=== PATIENT | male | born 1930 | race Two or more races ===

== ENCOUNTER 2016-03-14 14:21 | Outpatient (CLI) | payer MEDICARE | END 2016-03-14 23:59 | disposition home health service (06) | LOC: WOU 14:21 | PROVIDERS: ATTEND Podiatrist Foot & Ankle Surgery | DX: I83.013 Varicose veins of right lower extremity with ulcer of ankle (principal); L97.311 Non-pressure chronic ulcer of right ankle limited to breakdown of skin; I83.891 Varicose veins of right lower extremity with other complications; I10 Essential (primary) hypertension; J44.9 Chronic obstructive pulmonary disease, unspecified | CPT/HCPCS: 11042; A6207; A6402 ==

== ENCOUNTER 2016-03-21 13:26 | Outpatient (CLI) | payer MEDICARE | END 2016-03-21 23:59 | disposition home health service (06) | LOC: WOU 13:26 | PROVIDERS: ATTEND Podiatrist Foot & Ankle Surgery | DX: I87.2 Venous insufficiency (chronic) (peripheral) (principal); I96 Gangrene, not elsewhere classified; L97.311 Non-pressure chronic ulcer of right ankle limited to breakdown of skin; R60.0 Localized edema; J44.9 Chronic obstructive pulmonary disease, unspecified; E66.3 Overweight; Z68.27 Body mass index [BMI] 27.0-27.9, adult; Z87.891 Personal history of nicotine dependence | CPT/HCPCS: 11042; A6402; A6452 ==

== ENCOUNTER 2016-03-28 14:00 | Outpatient (CLI) | payer MEDICARE | END 2016-03-28 23:59 | disposition home health service (06) | LOC: WOU 14:00 | PROVIDERS: ATTEND Podiatrist Foot & Ankle Surgery | DX: I83.213 Varicose veins of right lower extremity with both ulcer of ankle and inflammation (principal); L97.319 Non-pressure chronic ulcer of right ankle with unspecified severity; I83.891 Varicose veins of right lower extremity with other complications; I10 Essential (primary) hypertension; J44.9 Chronic obstructive pulmonary disease, unspecified; Z87.891 Personal history of nicotine dependence; Z79.51 Long term (current) use of inhaled steroids | CPT/HCPCS: 11042; A6402; A6452 ==

== ENCOUNTER 2016-04-04 14:30 | Outpatient (CLI) | payer MEDICARE | END 2016-04-04 23:59 | disposition home health service (06) | LOC: WOU 14:30 | PROVIDERS: ATTEND Podiatrist Foot & Ankle Surgery | DX: I83.013 Varicose veins of right lower extremity with ulcer of ankle (principal); L97.311 Non-pressure chronic ulcer of right ankle limited to breakdown of skin; Z87.891 Personal history of nicotine dependence; E66.9 Obesity, unspecified; Z68.27 Body mass index [BMI] 27.0-27.9, adult; J44.9 Chronic obstructive pulmonary disease, unspecified; I83.891 Varicose veins of right lower extremity with other complications | CPT/HCPCS: 11042; A6207; A6402 ==

== ENCOUNTER 2016-04-11 13:15 | Outpatient (CLI) | payer MEDICARE | END 2016-04-11 23:59 | disposition home health service (06) | LOC: WOU 13:15 | PROVIDERS: ATTEND Podiatrist Foot & Ankle Surgery | DX: I87.2 Venous insufficiency (chronic) (peripheral) (principal); L97.311 Non-pressure chronic ulcer of right ankle limited to breakdown of skin; R60.0 Localized edema; Z87.891 Personal history of nicotine dependence; J44.9 Chronic obstructive pulmonary disease, unspecified; Z79.899 Other long term (current) drug therapy; I10 Essential (primary) hypertension | CPT/HCPCS: 11042; A6207; A6402 ==

== ENCOUNTER 2016-04-18 13:22 | Outpatient (CLI) | payer MEDICARE | END 2016-04-18 23:59 | disposition home health service (06) | LOC: WOU 13:22 | PROVIDERS: ATTEND Podiatrist Foot & Ankle Surgery | DX: I87.311 Chronic venous hypertension (idiopathic) with ulcer of right lower extremity (principal); R60.0 Localized edema; J44.9 Chronic obstructive pulmonary disease, unspecified; E66.9 Obesity, unspecified; Z68.27 Body mass index [BMI] 27.0-27.9, adult; L97.311 Non-pressure chronic ulcer of right ankle limited to breakdown of skin; I10 Essential (primary) hypertension | CPT/HCPCS: 11042; A6207; A6402 ==

== ENCOUNTER 2016-04-24 13:26 | Outpatient (CLI) | payer MEDICARE | END 2016-04-24 23:59 | disposition home health service (06) | LOC: WOU 13:26 | PROVIDERS: ATTEND Podiatrist Foot & Ankle Surgery | DX: I87.2 Venous insufficiency (chronic) (peripheral) (principal); L97.311 Non-pressure chronic ulcer of right ankle limited to breakdown of skin; R60.0 Localized edema; J44.9 Chronic obstructive pulmonary disease, unspecified; Z87.891 Personal history of nicotine dependence; E66.9 Obesity, unspecified; Z68.27 Body mass index [BMI] 27.0-27.9, adult | CPT/HCPCS: 11042; A6207; A6402 ==

== ENCOUNTER 2016-05-02 13:37 | Outpatient (CLI) | payer MEDICARE | END 2016-05-02 23:59 | disposition home health service (06) | DX: I87.311 Chronic venous hypertension (idiopathic) with ulcer of right lower extremity (principal); L97.312 Non-pressure chronic ulcer of right ankle with fat layer exposed; Z87.891 Personal history of nicotine dependence; J44.9 Chronic obstructive pulmonary disease, unspecified; I10 Essential (primary) hypertension | CPT/HCPCS: 11042; A6207; A6402 ==

== ENCOUNTER 2016-05-09 13:33 | Outpatient (CLI) | payer MEDICARE | END 2016-05-09 23:59 | disposition home health service (06) | LOC: WOU 13:33 | PROVIDERS: ATTEND Podiatrist Foot & Ankle Surgery | DX: I87.331 Chronic venous hypertension (idiopathic) with ulcer and inflammation of right lower extremity (principal); L97.312 Non-pressure chronic ulcer of right ankle with fat layer exposed; Z87.891 Personal history of nicotine dependence; J44.9 Chronic obstructive pulmonary disease, unspecified; I10 Essential (primary) hypertension; E66.9 Obesity, unspecified; Z68.27 Body mass index [BMI] 27.0-27.9, adult | CPT/HCPCS: 11042; A6207; A6402 ==

== ENCOUNTER 2016-05-11 13:44 | Outpatient (CLI) | payer MEDICARE ==
[2016-05-11 14:37] LABS: BASOPHILS % (AUTO) 0.5 % (0.0-2.0); DIFF TOTAL % 100 %; EOSINOPHILS # (AUTO) 0.3 /CMM (0.0-0.7); EOSINOPHILS % (AUTO) 4.4 % (0.0-6.0); HEMATOCRIT 45 % (39-51); HEMOGLOBIN 14.9 g/dL (13.5-17.5); LYMPHOCYTES # (AUTO) 1.5 /CMM (0.8-4.8); LYMPHOCYTES % (AUTO) 26.5 % (20.0-44.0); MEAN CORPUSCULAR HEMOGLOBIN 30 PG (26.0-33.0); MEAN CORPUSCULAR HGB CONC 33 g/dl (31.0-36.0); MEAN CORPUSCULAR VOLUME 91 fL (80-96); MONOCYTES # (AUTO) 0.6 /CMM (0.1-1.30); MONOCYTES % (AUTO) 10.2 % (2.0-12.0); NEUTROPHILS # (AUTO) 3.4 /CMM (1.8-8.9); NEUTROPHILS % (AUTO) 58.4 % (43.0-81.0); PLATELET COUNT (AUTO) 143 /CMM (150-450); RED BLOOD CELL COUNT(AUTO) 4.92 MIL/uL (4.5-6.0); WHITE BLOOD COUNT (AUTO) 5.8 K/uL (4.3-11.0)
[2016-05-11 14:47] LABS: CALCIUM, SERUM 8.9 mg/dL (8.5-10.1); POTASSIUM 3.8 mmol/L (3.5-5.1)
[2016-05-11 15:02] LABS: INR 1.02 (0.87-1.13)
== END 2016-05-11 23:59 | disposition home or self-care (01) ==
LOC: LAB 13:44
PROVIDERS: ATTEND Podiatrist Foot & Ankle Surgery
DX: I87.8 Other specified disorders of veins (principal); I70.0 Atherosclerosis of aorta; J98.11 Atelectasis
CPT/HCPCS: 36415; 71010-TC; 80048-TC; 85025-TC; 85730-TC

== ENCOUNTER 2016-05-18 05:36 | Inpatient (IN) | payer MEDICARE ==
[2016-05-18] VITALS (7 sets, daily range): BP systolic 124–144; BP diastolic 71–85
[~2016-05-18] VITALS: Ht 193 cm; Wt 90.7 kg
[2016-05-18] MEDS ORDERED: CEFAZOLIN SODIUM/DEXTROSE,ISO 100 ML IV ONE (06:15)
[2016-05-18] MEDS ORDERED: AMLO5TAB2 PO (06:24)
[2016-05-18] MEDS ORDERED: ALBU18HF2 INH (06:24)
[2016-05-18] MEDS ORDERED: TIOT18CA3 IH (10:20)
[2016-05-18 10:44] LABS: PHOSPHORUS 3.5 mg/dL (2.5-4.9)
[2016-05-18] MEDS ORDERED: MORPHINE SULFATE INJ 2 MG/ML DISP.SYRIN IV PRN (11:00)
[2016-05-18] MEDS ORDERED: ONDANSETRON HCL/PF 4 MG/2 ML VIAL IV PRN (11:00)
[2016-05-18] MEDS ORDERED: HYDROCODONE/APAP 5/325MG 1 EACH TABLET PO PRN ×2 (11:00)
--- NOTE | 2016-05-18 11:00 | NUR ---
ms rn received on bed, awake,alert,oriented x4,not in any form of distress, respirations even and unlabored,no sob noted, lungs are clear,abdomen soft,positive bowel sounds, denies pain at this time. s/p i and d of right foot w/ donor site at right upper leg w/ wound vac connected to wound and donor site.all needs attended.
--- NOTE | 2016-05-18 12:00 | NUR ---
MS NR REPOSITIONED FOR COMFORT.
--- NOTE | 2016-05-18 13:33 | NUR ---
COMMANDER POLICE RESERVES VAC THERAPY ORDERS CLARIFIED WITH SURGEON DR VENCES AND DISCUSSED WITH SOUND ENGINEER. PORTABLE HOME VAC IS IN THE ROOM ALONG WITH ALL HOME VAC SUPPLIES. PATIENT'S DAUGHTER WAS AT THE BEDSIDE AND SHE VERBALIZED GOOD UNDERSTANDING REGARDING THE VAC SUPPLIES.
--- NOTE | 2016-05-18 14:00 | NUR ---
MS RN REPOSITIONED FOR COMFORT.
[2016-05-18] MEDS: IPRATROPIUM NEB FS 0.5 MG/2.5 ML AMPUL.NEB NEB SCH ×2 (14:53→19:10)
--- NOTE | 2016-05-18 15:00 | NUR ---
MS MACHINE BOSS AT BEDSIDE,NO DISTRESS NOTED,DENIES PAIN AT THIS TIME.
--- NOTE | 2016-05-18 16:00 | NUR ---
MS RN REPOSITIONED FOR COMFORT.
[2016-05-18] MEDS ORDERED: IV SET PRIMARY PUMP SET 1 EA INFUS.SET MC ONE (16:25)
[2016-05-18] MEDS: ANCEF 1 GM/50 ML D5W IV SCH ×4 (16:31→21:36)
--- NOTE | 2016-05-18 18:00 | NUR ---
MS RN REPOSITIONED FOR COMFORT.
--- NOTE | 2016-05-18 19:00 | NUR ---
MS RN ON BED,NO DISTRESS NOTED,ALL NEEDS ATTENDED.
[2016-05-18] MEDS: ALBUTEROL FS 2.5 MG/3 ML VIAL.NEB NEB PRN (19:10)
--- NOTE | 2016-05-18 19:43 | NUR ---
CLINIC LEAD OPENING NOTES RECEIVED PATIENT IN BED AWAKE AND EASILY AWAKEN. IN STABLE CONDITION, NO S/S OF DISTRESS, IV SITE INTACT WITH S/S OF INFILTRATION. NO S/S OF DISTRESS NO SOB, NO CHEST PAIN. NO COMPLAINS OF PAIN, SAFE FREE ENVIRONMENT PROVIDED FREE OF CLUTTERS, WILL CONTINUE TO MONITOR, ON LOW BED TO ENSURE SAFETY, CALL LIGHT WITHIN REACH..
[2016-05-18 21:53] LABS: THYROID STIMULATING HORMONE 1.001 uIU/mL (0.358-3.74)
[2016-05-18] MEDS ORDERED: ZOLPIDEM TARTRATE 5 MG TABLET PO PRN (22:00)
--- NOTE | 2016-05-18 22:00 | NUR ---
TRANSPORTATION SECURITY SCREENERLEASE EXAMINER ] PATIENT REFUSED TO ASSESS WOUND RIGHT ANKLE PER PATIENT HE DOESNT WANT THE DRESSING TO BE TOUCH, I EXPLAINED AND RE EDUCATE THAT I NEED TO ASSESS THE WOUND AND MEASURE AND TAKE A PICTURE OF IT, PATIENT STILL REFUSED. HEALTH EDUCATION WAS PROVIDED. DRESSING INTACT NOT SOILED. NO S/S OF INFECTION. ON WOUND VAC. RISKS AND BENEFITS EXPLAINED OFFERED 3 TIMES MD MADE AWARE
[2016-05-19] VITALS: BP 152/89
[2016-05-19] MEDS: IPRATROPIUM NEB FS 0.5 MG/2.5 ML AMPUL.NEB NEB SCH ×4 (01:05→19:53)
[2016-05-19] MEDS: ALBUTEROL FS 2.5 MG/3 ML VIAL.NEB NEB PRN (01:06)
[2016-05-19 04:00] VITALS: BP 138/83
[2016-05-19] MEDS: ANCEF 1 GM/50 ML D5W IV SCH ×2 (04:32)
--- NOTE | 2016-05-19 06:31 | NUR ---
FILLING HAULER WEAVING CLOSING NOTES PATIENT COMFORTABLY IN BED ASLEEP AND EASILY AWAKEN, ON ATB WITH NO A/R NOTED. ALERT AND VERBALLY X 4 RESPONSIVE DENIES PAIN OR DISTRESS, RESPONDS APPROPRIATELY TO VERBAL STIMULI, RESPIRATIONS EVEN UNLABORED BREATH SOUNDS.. APICAL PULSE REGULAR; NO S/S OF BLEEDING NOTED. DRESSING INTACT IN THE RIGHT LOWER LEG ULCER NOT SOILED NO S/S OF INFECTION NOTED. GOOD SKIN CARE PROVIDED. PATIENT IN STABLE CONDITION WITH NO SOB NO S/S OF DISTRESS NO NAUSEA AND VOMITING NO HEADACHE NO PAIN, NO COMPLAIN OF CHEST PAIN SAFETY ENVIRONMENT PROVIDED. FREE OF CLUTTERS, SAFE HAZARD FREE ENVIRONMENT. NEEDS ATTENDED AND ANTICIPATED, NURSING CARE RENDERED, KEPT CLEAN AND DRY AND COMFORTABLE. ALL DUE MEDS WAS GIVEN. STRICTLY REPOSITIONED Q2H FOR COMFORT AND SKIN MGT. CALL LIGHT IN REACH, BED LOWERED AND LOCKED, SR X2 FOR SAFETY AND WILL ENDORSE CONTINUE PLAN OF CARE. PATIENT STILL REFUSED FOR ME TO ASSESS THE WOUND EXPLAINED THAT I NEED TO ASSESS AND TAKE A PICTURE PER PATIENT HE DOESNT WANT THE DRESSING TO BE TOUCH AT THIS MOMENT. RISKS AND BENEFITS EXPLAINED OFFERED 3X. PATIENT ON WOUND VAC. TOLERATING WELL
[2016-05-19 07:00] VITALS: BP 131/75
[2016-05-19 07:37] LABS: ALBUMIN 2.9 g/dL (3.4-5.0); BILIRUBIN,TOTAL 0.7 mg/dL (0.2-1.0); CALCIUM, SERUM 8.6 mg/dL (8.5-10.1); CREATININE 1.1 mg/dL (0.6-1.3); PHOSPHORUS 3.7 mg/dL (2.5-4.9); POTASSIUM 3.7 mmol/L (3.5-5.1); TOTAL PROTEIN, SERUM 6.3 g/dL (6.4-8.2)
[2016-05-19 07:41] LABS: BASOPHILS % (AUTO) 0.4 % (0.0-2.0); EOSINOPHILS # (AUTO) 0.1 /CMM (0.0-0.7); EOSINOPHILS % (AUTO) 2.4 % (0.0-6.0); HEMATOCRIT 44 % (39-51); HEMOGLOBIN 14.4 g/dL (13.5-17.5); LYMPHOCYTES # (AUTO) 1.1 /CMM (0.8-4.8); LYMPHOCYTES % (AUTO) 20.3 % (20.0-44.0); MEAN CORPUSCULAR HEMOGLOBIN 31 PG (26.0-33.0); MEAN CORPUSCULAR HGB CONC 33 g/dl (31.0-36.0); MEAN CORPUSCULAR VOLUME 93 fL (80-96); MONOCYTES # (AUTO) 0.6 /CMM (0.1-1.30); MONOCYTES % (AUTO) 10.5 % (2.0-12.0); NEUTROPHILS # (AUTO) 3.8 /CMM (1.8-8.9); NEUTROPHILS % (AUTO) 66.4 % (43.0-81.0); PLATELET COUNT (AUTO) 161 /CMM (150-450); RDW COEFFICIENT OF VARIATION 15.4 (11.5-15.0); RED BLOOD CELL COUNT(AUTO) 4.68 MIL/uL (4.5-6.0); WHITE BLOOD COUNT (AUTO) 5.7 K/uL (4.3-11.0)
--- NOTE | 2016-05-19 08:15 | NUR ---
AM RN NOTE Received patient awake, A/O X4 verbally responsive able to make needs known. Skin warm and dry to touch. On tele monitor and wound vac on. Patient seen and assessed by Dr. Majano with new order for CTA Abdominal aorta, order noted and carried out. Consent for procedure obtained from patient. IV site on RAC #20 started per lighting technician recommendation. Patient denies any pain at this time. On NPO status. Will continue to monitor.
[2016-05-19] MEDS: ASCORBIC ACID 500 MG TABLET PO SCH (09:00)
[2016-05-19] MEDS ORDERED: IV NS 0.9% 250 ML IV ONE (09:21)
[2016-05-19] MEDS ORDERED: IOHEXOL-350 100 ML VIAL IV ONE (09:21)
[2016-05-19] MEDS ORDERED: CT SWABBABLE VALVE TRANS SET 1 EA INFUS.SET MC ONE (09:21)
--- NOTE | 2016-05-19 09:30 | NUR ---
RN NOTE Patient awake, left for CTA procedure at this time. Received call from Dali (Daughter) made aware about procedure.
--- NOTE | 2016-05-19 10:03 | NUR ---
RN NOTE Patient came back from procedure, A/O X4.
--- NOTE | 2016-05-19 12:00 | NUR ---
RN NOTE Patient awake lying in his bed. Daughter (Dali) at bedside, made aware about discharge orders. Wound vac changed to home wound vac @125mm/hg settings. Teachings on wound vac given to daughter by 2RN's and daughter shows understanding. [facility] [place] provided to daughter.Daughter has questions regarding home health services and requesting for W/C. Called Jaymie (manager environmental health and safety) and made aware to talk to daughter. Charge nurse made aware.
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
--- NOTE | 2016-05-19 15:00 | NUR ---
RN NOTE Patient seen and assessed by Physical therapist (Jackelyn) and needs lots of assist at home. Lita KIDD) made aware by KRISTY.
[2016-05-19 16:00] VITALS: BP 124/68
--- NOTE | 2016-05-19 17:05 | NUR ---
RN NOTE Patient seen by Dr. Rubio with new orders. Dr. Martinez made aware about consult order. Notified Dr. Joy about cancelled discharge.
[2016-05-19] MEDS ORDERED: IV SET PRIMARY PUMP SET 1 EA INFUS.SET MC ONE (17:30)
[2016-05-19] MEDS: CIPROFLOXACIN IV RTU 400 MG in PREMIX 1 EA IV SCH (17:50)
--- NOTE | 2016-05-19 18:19 | NUR ---
RN NOTE Patient awake, ate dinner. Denies any pain or discomfort at this time. Family at bedside. Will continue to monitor. Wound vac attached to site as ordered. Call light with in reach. Will endorse to next shift for ELO.
[2016-05-19 20:46] VITALS: BP 133/63
[2016-05-20] MEDS: IPRATROPIUM NEB FS 0.5 MG/2.5 ML AMPUL.NEB NEB SCH ×4 (01:06→20:15)
[2016-05-20 01:32] VITALS: BP 124/82
[2016-05-20] MEDS: CIPROFLOXACIN IV RTU 400 MG in PREMIX 1 EA IV SCH ×2 (04:02→16:55)
--- NOTE | 2016-05-20 06:36 | NUR ---
MS RN CLOSING NOTES PATIENT COMFORTABLY IN BED ASLEEP AND EASILY AWAKEN, BREATHING TREATMENT TOLERATED WELL. WOUND VAC FUNCTIONING WELL. ON ATB WITH NO A/R NOTED. ALERT AND VERBALLY X 4 RESPONSIVE DENIES PAIN OR DISTRESS, RESPONDS APPROPRIATELY TO VERBAL STIMULI, RESPIRATIONS EVEN UNLABORED BREATH SOUNDS. APICAL PULSE REGULAR; GOOD SKIN CARE PROVIDED. PATIENT IN STABLE CONDITION WITH NO SOB NO S/S OF DISTRESS NO NAUSEA AND VOMITING NO HEADACHE NO PAIN, NO COMPLAIN OF CHEST PAIN SAFETY ENVIRONMENT PROVIDED. FREE OF CLUTTERS, SAFE HAZARD FREE ENVIRONMENT. NEEDS ATTENDED AND ANTICIPATED, NURSING CARE RENDERED, KEPT CLEAN AND DRY AND COMFORTABLE. ALL DUE MEDS WAS GIVEN. ASSISTED REPOSITIONED Q2H FOR COMFORT AND SKIN MGT. CALL LIGHT IN REACH, BED LOWERED AND LOCKED, SR X2 FOR SAFETY AND WILL ENDORSE CONTINUE PLAN OF CARE
--- NOTE | 2016-05-20 07:15 | NUR ---
MS RN INITIAL NOTES REPORT RECEIVED AT THE BEDSIDE. PATIENT IS SLEEPING. NO SOB OR DISTRESS NOTED AT THIS TIME. PATIENT DOES NOT APPEAR TO BE IN PAIN, NO FACIAL GRIMACE NOTED. WOUND VAC ATTACHED AND DRAINING. BED IN A LOW POSITION, CALL LIGHT WITHIN PATIENT REACH. WILL CONTINUE TO MONITOR.
[2016-05-20 08:00] VITALS: BP 146/84
[2016-05-20] MEDS: ASCORBIC ACID 500 MG TABLET PO SCH (08:15)
[2016-05-20] MEDS: ALBUTEROL FS 2.5 MG/3 ML VIAL.NEB NEB PRN ×2 (09:39→14:04)
--- NOTE | 2016-05-20 13:21 | NUR ---
RT Patient is on oxygen 2L, NC. Wheezes breath sounds. Patient has dry non productive cough. Tx given as ordered. No adverse reactions. Ambu bag at the bed side.
[2016-05-20 16:00] VITALS: BP 139/82
--- NOTE | 2016-05-20 18:54 | NUR ---
MS RN CLOSING NOTES NO SIGNIFICANT CHANGES IN PATIENT CONDITION THROUGHOUT THE SHIFT. NO SOB OR DISTRESS NOTED AT THIS TIME. PATIENT DENIES PAIN. BED IN A LOW POSITION, CALL LIGHT WITHIN PATIENT REACH. WOUND VAC ATTACHED AND DRAINING. WILL ENDORSE FOR ELO.
--- NOTE | 2016-05-20 19:50 | NUR ---
MS RN INITIAL NOTES: RECEIVED REPORT FROM OSCAR HIGGINS. PT ON BED, AWAKE, A/O X4, ON 2L VIA NC, LUNGS CLEAR UPON AUSCULTATION OF THE LUNG FIELD, PT DENIES ANY SOB OR CHEST PAIN OR LEG PAIN. S/P RLE PREPARATION SKIN GRAFT AND WOUND VAC PLACEMENT, BY DR VENCES ON 05/18/16, WOUND VAC THERAPY AT CONTINUOUS 125 MMHG. BLOODY DRAINAGE NOTED, SCANTY IN AMOUNT. PT'S RLE COVERED WITH SURGICAL DRESSING, C/D/I, NO ACTIVE BLEEDING NOTED, NO S/S OF INFECTION OR REDNESS NOTED, PT ABLE TO MOVE AND WIGGLE TOES, DENIES ANY NUMBNESS TINGLING SENSATION ON LEG. BLE OFFLOADED. SCD IN USE. AT BED SIDE. SAFETY PRECAUTIONS FOR FALL INITIATED CALL LIGHT IN REACH WILL CONTINUE TO MONITOR
[2016-05-20 20:00] VITALS: BP 138/80
--- NOTE | 2016-05-20 20:00 | NUR ---
MS RN NOTES: PT REFUSED SCD EDUCATE PT REGARDING RISK AND BENEFITS, PT A/O X4
--- NOTE | 2016-05-20 20:47 | NUR ---
MS RN NOTES: IV ACCESS PATENT AND FLUSHING WELL, NO S/S OF INFILTRATION OR REDNESS NOTED, ON HL
[2016-05-20 20:58] VITALS: BP 138/80
--- NOTE | 2016-05-20 21:05 | NUR ---
RN NOTES: PT HAS HEARING AID ON RIGHT EAR
[2016-05-21] MEDS: IPRATROPIUM NEB FS 0.5 MG/2.5 ML AMPUL.NEB NEB SCH ×4 (00:38→19:31)
[2016-05-21] MEDS: CIPROFLOXACIN IV RTU 400 MG in PREMIX 1 EA IV SCH (04:08)
--- NOTE | 2016-05-21 06:59 | NUR ---
MS RN CLOSING NOTES: PT ON BED, AWAKE, DENIES ANY PAIN OR DISCOMFORT THROUGHOUT THE SHIFT. PT'S DRESSING ON RIGHT LEG REMAINS C/D/I, PT DENIES ANY NUMBNESS TINGLING NUMBNESS SENSATION ON RIGHT LEG, ABLE TO MOVE AND WIGGLE TOES. WOUND VAC IN PLACED AT 125MMHG, WITH SCANTY AMOUNT OF BLOODY DRAINAGE. PT REMAINS NON WEIGHTBEARING ON RLE. REMAINS ON 2L VIA NC, DENIES ANY SOB AT THIS TIME. RESPIRATION EVEN AND UNLABORED. RIGHT AC IV ACCESS REMAINS PATENT AND FLUSHING WELL, ON HL. VS REMAINS STABLE, NEEDS ATTENDED. SAFETY PRECAUTIONS FOR FALL REMAINS ENGAGED, CALL LIGHT IN REACH, WILL ENDORSE TO DAY RN FOR ELO.
[2016-05-21 07:39] LABS: BASOPHILS % (AUTO) 0.6 % (0.0-2.0); EOSINOPHILS # (AUTO) 0.3 /CMM (0.0-0.7); EOSINOPHILS % (AUTO) 5.1 % (0.0-6.0); HEMATOCRIT 46 % (39-51); LYMPHOCYTES # (AUTO) 1.4 /CMM (0.8-4.8); LYMPHOCYTES % (AUTO) 21.5 % (20.0-44.0); MEAN CORPUSCULAR HEMOGLOBIN 30 PG (26.0-33.0); MEAN CORPUSCULAR HGB CONC 33 g/dl (31.0-36.0); MEAN CORPUSCULAR VOLUME 93 fL (80-96); MONOCYTES # (AUTO) 0.9 /CMM (0.1-1.30); MONOCYTES % (AUTO) 13.5 % (2.0-12.0); NEUTROPHILS # (AUTO) 3.7 /CMM (1.8-8.9); NEUTROPHILS % (AUTO) 59.3 % (43.0-81.0); PLATELET COUNT (AUTO) 167 /CMM (150-450); RDW COEFFICIENT OF VARIATION 15.4 (11.5-15.0); RED BLOOD CELL COUNT(AUTO) 4.94 MIL/uL (4.5-6.0); WHITE BLOOD COUNT (AUTO) 6.3 K/uL (4.3-11.0)
[2016-05-21 07:58] LABS: CALCIUM, SERUM 8.5 mg/dL (8.5-10.1); CREATININE 1.2 mg/dL (0.6-1.3); POTASSIUM 3.7 mmol/L (3.5-5.1)
[2016-05-21 08:00] VITALS: BP 133/75
--- NOTE | 2016-05-21 08:10 | NUR ---
MS RN RECEIVED ON BED, AWAKE,ALERT,ORIENTED X4,NOT IN ANY FORM OF DISTRESS, RESPIRATIONS EVEN AND UNLABORED,NO SOB NOTED, LUNGS ARE CLEAR,ABDOMEN SOFT,POSITIVE BOWEL SOUNDS,DENIES PAIN AT THIS TIME,ALL NEEDS ATTENDED.
--- NOTE | 2016-05-21 09:00 | NUR ---
MS HIGGINS BREAKFAST SERVED,DUE MEDS GIVEN,TOLERATED WELL. WILL MONITOR PATIENT'S CONDITION.
[2016-05-21] MEDS: ASCORBIC ACID 500 MG TABLET PO SCH (09:33)
--- NOTE | 2016-05-21 10:00 | NUR ---
MS RN CHECKED RIGHT LEG WOUND VAC, FUNCTIONING WELL AT THIS TIME W/ SANGUENOUS DRAINAGE.
--- NOTE | 2016-05-21 14:00 | NUR ---
MS RN PATIENT SEATING ON A CHAIR, D/C PLAN IN AM PER SENIOR ACCOUNTING MANAGER.
[2016-05-21 16:00] VITALS: BP 148/87
[2016-05-21] MEDS: ALBUTEROL FS 2.5 MG/3 ML VIAL.NEB NEB PRN (19:31)
--- NOTE | 2016-05-21 19:31 | NUR ---
MS RN ON BED,NO CHANGE OF CONDITION.
--- NOTE | 2016-05-21 19:55 | NUR ---
RN OPENING NOTES RECEIVED REPORT FROM DAYSHIFT RN. FOUND Pt AWAKE, RESTING IN BED. DTR VISITING AT BEDSIDE. A/OX4, VERBAL, ABLE TO MAKE NEEDS KNOWN. NO S/S OF ACUTE DISTRESS OR SOB NOTED. NO C/O SEVERE PAIN AT THIS TIME. IV ACCESS ON RAC #20G, SL & L HAND #20G, SL. SAFETY MEASURES IN PLACE. BED LOW, LOCKED, HOB ELEVATED, SIDE RAILS UP, CALL LIGHT WITHIN REACH. WILL CONTINUE TO MONITOR Pt THROUGHOUT THE NIGHT.
[2016-05-21 20:00] VITALS: BP 150/76
[2016-05-21 22:00] VITALS: BP 150/76
[2016-05-22] MEDS: IPRATROPIUM NEB FS 0.5 MG/2.5 ML AMPUL.NEB NEB SCH ×3 (01:17→14:18)
[2016-05-22] MEDS: ALBUTEROL FS 2.5 MG/3 ML VIAL.NEB NEB PRN ×3 (01:17→14:18)
--- NOTE | 2016-05-22 06:33 | NUR ---
RN CLOSING NOTES NO SIGNIFICANT CHANGES DURING THE SHIFT. NO S/S OF ACUTE DISTRESS OR SOB NOTED. ALL NEEDS MET AND ATTENDED TO. SAFETY MEASURES IN PLACE. WOUND VAC RUNNING @125. D/C PLAN IN THE AM TODAY. WILL ENDORSE TO DAYSHIFT RN FOR Pt's ELO.
[2016-05-22 08:00] VITALS: BP 131/72
--- NOTE | 2016-05-22 08:05 | NUR ---
MS/RN AM NOTES RECEIVED PATIENT IN BED, AWAKE, ALERT, IN STABLE CONDITION, WITHOUT SOB, DENIES PAIN, IV LINE LEFT WRIST PATENT, NO REDNESS. WOUND VAC IN PLACE RIGHT UPPER THIGH, WITH 500 ML DRAINAGE. KEPT COMFORTABLE, WITH CALL LIGHT WITHIN EASY REACH. WILL CONTINUE TO MONITOR ACCORDINGLY
[2016-05-22] MEDS: ASCORBIC ACID 500 MG TABLET PO SCH (08:30)
[2016-05-22] MEDS ORDERED: ERGOCALCIFEROL (VITAMIN D 2) 50,000 UNIT CAPSULE PO SCH (11:00)
[2016-05-22 16:00] VITALS: BP 130/71
--- NOTE | 2016-05-22 18:40 | NUR ---
DISCHARGED PT HOME WITH STABLE V/S VIA PRIVATE TRANSPORTATION ([facility]) WITH HIS WOUND VAC ATTACHED AND ALL HIS BELONGINGS AND SUPPLIES.CALLED [facility] AND SPOKE TO BANDAR WHO STATED THAT PT WILL BE SEEN BY HOME HEALTH RN PARAM.
== END 2016-05-22 18:40 | disposition home health service (06) | DRG 264 ==
LOC: DS 05:36 → WOUND3 09:27
PROC: 0HRMX74 Replacement of Right Foot Skin with Autologous Tissue Substitute, Partial Thickness, External Approach (ICD-10-PCS; principal; 2016-05-18 07:00)
DX: I87.2 Venous insufficiency (chronic) (peripheral) (principal); L03.115 Cellulitis of right lower limb; J98.11 Atelectasis; N13.30 Unspecified hydronephrosis; L97.319 Non-pressure chronic ulcer of right ankle with unspecified severity; K80.20 Calculus of gallbladder without cholecystitis without obstruction; J44.9 Chronic obstructive pulmonary disease, unspecified; I73.9 Peripheral vascular disease, unspecified; I10 Essential (primary) hypertension; H91.91 Unspecified hearing loss, right ear; Z87.891 Personal history of nicotine dependence; E55.9 Vitamin D deficiency, unspecified; B96.5 Pseudomonas (aeruginosa) (mallei) (pseudomallei) as the cause of diseases classified elsewhere; B96.89 Other specified bacterial agents as the cause of diseases classified elsewhere
CPT/HCPCS: 36415; 76700-TC; 80048-TC; 80053-TC; 82306; 83735-TC; 84100-TC; 84439-TC; 84443-TC; 85025-TC; 87070-TC; 87075-TC; 87186-TC; 88305-TC; 88312-TC; 93307-TC; 94799-TC; 97001-TC; 97116-TC; 97530-TC; A4216; J0690; J0744; J1100; J2001; J2704; J7050; J7060; Q9967; Z7610

== ENCOUNTER 2016-05-25 15:47 | Outpatient (CLI) | payer MEDICARE ==
[~2016-05-25 15:47] MED LIST: ALBU18HF2 INH; AMLO5TAB2 PO; TIOT18CA3 IH
== END 2016-05-25 23:59 | disposition home health service (06) ==
LOC: WOU 15:47
PROVIDERS: ATTEND Podiatrist Foot & Ankle Surgery
DX: I87.311 Chronic venous hypertension (idiopathic) with ulcer of right lower extremity (principal); L97.312 Non-pressure chronic ulcer of right ankle with fat layer exposed; T86.828 Other complications of skin graft (allograft) (autograft); Z87.891 Personal history of nicotine dependence; J44.9 Chronic obstructive pulmonary disease, unspecified; I10 Essential (primary) hypertension; L03.115 Cellulitis of right lower limb; Z99.3 Dependence on wheelchair
CPT/HCPCS: 29582; A6207; A6402

== ENCOUNTER 2016-05-29 08:18 | Outpatient (CLI) | payer MEDICARE | END 2016-05-29 23:59 | disposition home health service (06) | LOC: WOU 08:18 | PROVIDERS: ATTEND Podiatrist Foot & Ankle Surgery | DX: T86.822 Skin graft (allograft) (autograft) infection (principal); L03.115 Cellulitis of right lower limb; B96.89 Other specified bacterial agents as the cause of diseases classified elsewhere; I87.311 Chronic venous hypertension (idiopathic) with ulcer of right lower extremity; L97.319 Non-pressure chronic ulcer of right ankle with unspecified severity; J44.9 Chronic obstructive pulmonary disease, unspecified | CPT/HCPCS: A6207; A6402 ==

== ENCOUNTER 2016-06-01 08:28 | Outpatient (CLI) | payer MEDICARE | END 2016-06-01 23:59 | disposition home health service (06) | LOC: WOU 08:28 | PROVIDERS: ATTEND Podiatrist Foot & Ankle Surgery | DX: Z48.817 Encounter for surgical aftercare following surgery on the skin and subcutaneous tissue (principal); I87.311 Chronic venous hypertension (idiopathic) with ulcer of right lower extremity; L97.319 Non-pressure chronic ulcer of right ankle with unspecified severity; J44.9 Chronic obstructive pulmonary disease, unspecified | CPT/HCPCS: 29582; A6207; A6402; G0463 ==

== ENCOUNTER 2016-06-05 08:32 | Outpatient (CLI) | payer MEDICARE | END 2016-06-05 23:59 | disposition home health service (06) | LOC: WOU 08:32 | PROVIDERS: ATTEND Podiatrist Foot & Ankle Surgery | DX: I87.311 Chronic venous hypertension (idiopathic) with ulcer of right lower extremity (principal); L97.311 Non-pressure chronic ulcer of right ankle limited to breakdown of skin; L03.115 Cellulitis of right lower limb; B96.5 Pseudomonas (aeruginosa) (mallei) (pseudomallei) as the cause of diseases classified elsewhere; B96.89 Other specified bacterial agents as the cause of diseases classified elsewhere; L30.9 Dermatitis, unspecified; T86.821 Skin graft (allograft) (autograft) failure | CPT/HCPCS: A6207; A6402 ==

== ENCOUNTER 2016-06-08 08:25 | Outpatient (CLI) | payer MEDICARE | END 2016-06-08 23:59 | disposition home health service (06) | LOC: WOU 08:25 | PROVIDERS: ATTEND Podiatrist Foot & Ankle Surgery | DX: I87.331 Chronic venous hypertension (idiopathic) with ulcer and inflammation of right lower extremity (principal); L97.311 Non-pressure chronic ulcer of right ankle limited to breakdown of skin; L30.9 Dermatitis, unspecified; L03.115 Cellulitis of right lower limb; B96.5 Pseudomonas (aeruginosa) (mallei) (pseudomallei) as the cause of diseases classified elsewhere; T86.821 Skin graft (allograft) (autograft) failure | CPT/HCPCS: A6207; A6402 ==

== ENCOUNTER 2016-06-11 08:28 | Emergency (ER) | payer MEDICARE ==
[~2016-06-11] VITALS: Ht 182.9 cm; Wt 90.7 kg
[2016-06-11 08:40] VITALS: BP 145/68
== END 2016-06-11 09:30 | disposition home or self-care (01) ==
LOC: ER 08:29
DX: T82.898A Other specified complication of vascular prosthetic devices, implants and grafts, initial encounter (principal); I10 Essential (primary) hypertension
CPT/HCPCS: 73080; 99284; A4606; Z7610

== ENCOUNTER 2016-06-12 08:20 | Outpatient (CLI) | payer MEDICARE | END 2016-06-12 23:59 | disposition home or self-care (01) | LOC: WOU 08:20 | PROVIDERS: ATTEND Podiatrist Foot & Ankle Surgery | DX: I87.311 Chronic venous hypertension (idiopathic) with ulcer of right lower extremity (principal); L97.319 Non-pressure chronic ulcer of right ankle with unspecified severity; T86.821 Skin graft (allograft) (autograft) failure; L30.9 Dermatitis, unspecified | CPT/HCPCS: A6207; A6402; G0463 ==

== ENCOUNTER 2016-06-19 08:21 | Outpatient (CLI) | payer MEDICARE | END 2016-06-19 23:59 | disposition home health service (06) | LOC: WOU 08:21 | PROVIDERS: ATTEND Podiatrist Foot & Ankle Surgery | DX: I83.213 Varicose veins of right lower extremity with both ulcer of ankle and inflammation (principal); L97.311 Non-pressure chronic ulcer of right ankle limited to breakdown of skin; T86.821 Skin graft (allograft) (autograft) failure | CPT/HCPCS: 11042; A6207; A6402 ==

== ENCOUNTER 2016-06-27 08:22 | Outpatient (CLI) | payer MEDICARE | END 2016-06-27 23:59 | disposition home health service (06) | LOC: WOU 08:22 | PROVIDERS: ATTEND Specialist | DX: I83.013 Varicose veins of right lower extremity with ulcer of ankle (principal); L97.311 Non-pressure chronic ulcer of right ankle limited to breakdown of skin; L03.115 Cellulitis of right lower limb; T86.828 Other complications of skin graft (allograft) (autograft) | CPT/HCPCS: A6207; A6253; A6402 ==

== ENCOUNTER 2016-07-03 08:20 | Outpatient (CLI) | payer MEDICARE | END 2016-07-03 23:59 | disposition home health service (06) | LOC: WOU 08:20 | PROVIDERS: ATTEND Podiatrist Foot & Ankle Surgery | DX: I87.391 Chronic venous hypertension (idiopathic) with other complications of right lower extremity (principal); L85.3 Xerosis cutis | CPT/HCPCS: 29582; A6207 ×2; A6402 ==

== ENCOUNTER 2016-07-10 08:30 | Outpatient (CLI) | payer MEDICARE | END 2016-07-10 23:59 | disposition home health service (06) | LOC: WOU 08:30 | PROVIDERS: ATTEND Podiatrist Foot & Ankle Surgery | DX: I87.303 Chronic venous hypertension (idiopathic) without complications of bilateral lower extremity (principal); L85.3 Xerosis cutis; B35.1 Tinea unguium; E66.9 Obesity, unspecified; Z68.27 Body mass index [BMI] 27.0-27.9, adult; J44.9 Chronic obstructive pulmonary disease, unspecified | CPT/HCPCS: 29582; A6207; A6402; G0463 ==

== ENCOUNTER 2016-07-17 08:30 | Outpatient (CLI) | payer MEDICARE | END 2016-07-17 23:59 | disposition home or self-care (01) | LOC: WOU 08:30 | PROVIDERS: ATTEND Podiatrist Foot & Ankle Surgery | DX: I87.301 Chronic venous hypertension (idiopathic) without complications of right lower extremity (principal); L85.3 Xerosis cutis; B35.1 Tinea unguium; E66.9 Obesity, unspecified; Z68.27 Body mass index [BMI] 27.0-27.9, adult; J44.9 Chronic obstructive pulmonary disease, unspecified; I10 Essential (primary) hypertension | CPT/HCPCS: 29580-RT; A6207; A6402; G0463 ==

== ENCOUNTER 2016-07-24 10:34 | Outpatient (CLI) | payer MEDICARE | END 2016-07-24 23:59 | disposition home or self-care (01) | LOC: WOU 10:34 | PROVIDERS: ATTEND Podiatrist Foot & Ankle Surgery | DX: I83.12 Varicose veins of left lower extremity with inflammation (principal); I83.11 Varicose veins of right lower extremity with inflammation; R23.4 Changes in skin texture; J44.9 Chronic obstructive pulmonary disease, unspecified; E66.9 Obesity, unspecified; Z68.27 Body mass index [BMI] 27.0-27.9, adult; I10 Essential (primary) hypertension | CPT/HCPCS: G0463 ==

== ENCOUNTER 2016-07-27 12:45 | Outpatient (CLI) | payer MEDICARE | END 2016-07-27 23:59 | disposition home or self-care (01) | LOC: WOU 12:45 | PROVIDERS: ATTEND Podiatrist Foot & Ankle Surgery | DX: I87.321 Chronic venous hypertension (idiopathic) with inflammation of right lower extremity (principal); L03.115 Cellulitis of right lower limb; I87.2 Venous insufficiency (chronic) (peripheral); J44.9 Chronic obstructive pulmonary disease, unspecified; I10 Essential (primary) hypertension; E66.9 Obesity, unspecified; Z68.27 Body mass index [BMI] 27.0-27.9, adult | CPT/HCPCS: 29582; A6207 ==

== ENCOUNTER 2017-04-17 09:50 | Outpatient (CLI) | payer MEDICARE | END 2017-04-17 23:59 | disposition home or self-care (01) | LOC: WOU 09:50 | PROVIDERS: ATTEND Podiatrist Foot & Ankle Surgery | DX: I87.2 Venous insufficiency (chronic) (peripheral) (principal); L97.312 Non-pressure chronic ulcer of right ankle with fat layer exposed; I89.0 Lymphedema, not elsewhere classified; L03.115 Cellulitis of right lower limb; Z87.891 Personal history of nicotine dependence; I10 Essential (primary) hypertension | CPT/HCPCS: 11042; 87070; 87075; 87186; A6402 ==

== ENCOUNTER 2017-04-23 09:00 | Outpatient (CLI) | payer MEDICARE | END 2017-04-23 23:59 | disposition home health service (06) | LOC: WOU 09:00 | PROVIDERS: ATTEND Specialist | DX: I87.311 Chronic venous hypertension (idiopathic) with ulcer of right lower extremity (principal); L97.312 Non-pressure chronic ulcer of right ankle with fat layer exposed; Z87.891 Personal history of nicotine dependence; E66.9 Obesity, unspecified; Z68.27 Body mass index [BMI] 27.0-27.9, adult; J44.9 Chronic obstructive pulmonary disease, unspecified; I10 Essential (primary) hypertension | CPT/HCPCS: 11042; A6402 ==

== ENCOUNTER 2017-04-30 09:21 | Outpatient (CLI) | payer MEDICARE | END 2017-04-30 23:59 | disposition home health service (06) | LOC: WOU 09:21 | PROVIDERS: ATTEND Specialist | DX: I87.311 Chronic venous hypertension (idiopathic) with ulcer of right lower extremity (principal); L97.312 Non-pressure chronic ulcer of right ankle with fat layer exposed; J44.9 Chronic obstructive pulmonary disease, unspecified; Z87.891 Personal history of nicotine dependence; I10 Essential (primary) hypertension | CPT/HCPCS: A6402; G0463 ==

== ENCOUNTER 2017-05-08 08:00 | Outpatient (CLI) | payer MEDICARE | END 2017-05-08 23:59 | disposition home health service (06) | LOC: WOU 08:00 | PROVIDERS: ATTEND Podiatrist Foot & Ankle Surgery | DX: I87.2 Venous insufficiency (chronic) (peripheral) (principal); L97.312 Non-pressure chronic ulcer of right ankle with fat layer exposed; R60.0 Localized edema; L85.3 Xerosis cutis; E66.9 Obesity, unspecified; Z68.27 Body mass index [BMI] 27.0-27.9, adult; J44.9 Chronic obstructive pulmonary disease, unspecified; Z79.51 Long term (current) use of inhaled steroids; Z79.82 Long term (current) use of aspirin | CPT/HCPCS: 11042; A6402 ==

== ENCOUNTER 2017-05-14 09:10 | Outpatient (CLI) | payer MEDICARE | END 2017-05-14 23:59 | disposition home health service (06) | LOC: WOU 09:10 | PROVIDERS: ATTEND Podiatrist Foot & Ankle Surgery | DX: I87.2 Venous insufficiency (chronic) (peripheral) (principal); L97.312 Non-pressure chronic ulcer of right ankle with fat layer exposed; R60.0 Localized edema; L85.3 Xerosis cutis | CPT/HCPCS: 11042; A6402 ==

== ENCOUNTER 2017-05-21 09:10 | Outpatient (CLI) | payer MEDICARE | END 2017-05-21 23:59 | disposition home health service (06) | LOC: WOU 09:10 | PROVIDERS: ATTEND Podiatrist Foot & Ankle Surgery | DX: I87.2 Venous insufficiency (chronic) (peripheral) (principal); L97.312 Non-pressure chronic ulcer of right ankle with fat layer exposed; R60.0 Localized edema | CPT/HCPCS: 11042; A6402 ==

== ENCOUNTER 2017-05-28 09:11 | Outpatient (CLI) | payer MEDICARE | END 2017-05-28 23:59 | disposition home health service (06) | LOC: WOU 09:11 | PROVIDERS: ATTEND Podiatrist Foot & Ankle Surgery | DX: I87.311 Chronic venous hypertension (idiopathic) with ulcer of right lower extremity (principal); L97.312 Non-pressure chronic ulcer of right ankle with fat layer exposed; L85.3 Xerosis cutis | CPT/HCPCS: 11042; A6402 ==

== ENCOUNTER 2017-06-04 08:40 | Outpatient (CLI) | payer MEDICARE | END 2017-06-04 23:59 | disposition home health service (06) | LOC: WOU 08:40 | PROVIDERS: ATTEND Podiatrist Foot & Ankle Surgery | DX: I87.311 Chronic venous hypertension (idiopathic) with ulcer of right lower extremity (principal); L97.312 Non-pressure chronic ulcer of right ankle with fat layer exposed; I87.8 Other specified disorders of veins; R60.9 Edema, unspecified; L85.3 Xerosis cutis; Z98.890 Other specified postprocedural states; Z79.82 Long term (current) use of aspirin | CPT/HCPCS: 11042; A6402 ==

== ENCOUNTER 2017-06-11 09:07 | Outpatient (CLI) | payer MEDICARE ==
[~2017-06-11 09:07] MED LIST changes: -AMLO5TAB2 PO; +AMLO5TAB7 PO
== END 2017-06-11 23:59 | disposition home health service (06) ==
LOC: WOU 09:07
PROVIDERS: ATTEND Podiatrist Foot & Ankle Surgery
DX: I87.331 Chronic venous hypertension (idiopathic) with ulcer and inflammation of right lower extremity (principal); L97.312 Non-pressure chronic ulcer of right ankle with fat layer exposed; L85.3 Xerosis cutis; R60.9 Edema, unspecified; Z98.890 Other specified postprocedural states
CPT/HCPCS: 11042; A6402

== ENCOUNTER 2017-06-18 09:18 | Outpatient (CLI) | payer MEDICARE | END 2017-06-18 23:59 | disposition home health service (06) | LOC: WOU 09:18 | PROVIDERS: ATTEND Podiatrist Foot & Ankle Surgery | DX: I87.311 Chronic venous hypertension (idiopathic) with ulcer of right lower extremity (principal); L97.312 Non-pressure chronic ulcer of right ankle with fat layer exposed | CPT/HCPCS: 11042; A6402 ==